=== PATIENT | male | born 1970 | race Caucasian/White ===

== ENCOUNTER 2019-03-23 03:19 | Emergency (ER) | payer OTHER, BC ==
--- NOTE | 2019-03-23 03:32 | EDM.PDOC ---
ED HPI GENERAL MEDICAL PROBLEM - General Chief Complaint: Eye Problems Stated Complaint: BOTH EYES IRRITATED AND SWOLLEN Time Seen by Provider: 03/23/19 03:32 Source of Information: Reports: Patient - History of Present Illness INITIAL COMMENTS - FREE TEXT/NARRATIVE: HISTORY AND PHYSICAL: History of present illness: [ Patient presents with eye irritation after leaving his contact lenses in for an extended period, he did remove the lenses and did discard them and has been wearing spectacles since he has injected sclera and tearing fine crusty exudate in the angle of his eyes bilaterally no fever nausea vomiting chills sweats no blurred vision double vision light sensitivity ] Review of systems: As per history of present illness and below otherwise all systems reviewed and negative. Past medical history: As per history of present illness and as reviewed below otherwise noncontributory. Surgical history: As per history of present illness and as reviewed below otherwise noncontributory. Social history: No reported history of drug or alcohol abuse. Family history: As per history of present illness and as reviewed below otherwise noncontributory. Physical exam: HEENT: Atraumatic, normocephalic, pupils reactive, negative for conjunctival pallor or scleral icterus, mucous membranes moist, throat clear, neck supple, nontender, trachea midline. Lungs: Clear to auscultation, breath sounds equal bilaterally, chest nontender. Heart: S1S2, regular, negative for clicks, rubs, or JVD. Abdomen: Soft, nondistended, nontender. Negative for masses or hepatosplenomegaly. Negative for costovertebral tenderness. Pelvis: Stable nontender. Genitourinary: Deferred. Rectal: Deferred. Extremities: Atraumatic, negative for cords or calf pain. Neurovascular unremarkable. Neuro: Awake, alert, oriented. Cranial nerves II through XII unremarkable. Cerebellum unremarkable. Motor and sensory unremarkable throughout. Exam nonfocal. Diagnostics: [Clinical ] Therapeutics: [Erythromycin ] Continue spectacle use Impression: [Acute conjunctivitis ] Definitive disposition and diagnosis as appropriate pending reevaluation and review of above. Bilateral Eye Pain Score (Numeric/FACES): 6 - Related Data Allergies Allergy/AdvReac Type Severity Reaction Status Date / Time No Known Allergies Allergy Verified 03/23/19 03:33 Home Meds: Home Meds . [Unable to Verify Home Med List] 09/29/19 [History] ED ROS GENERAL - Review of Systems Review Of Systems: See Below ED EXAM GENERAL W FULL EYE - Physical Exam Exam: See Below Course - Vital Signs Last Recorded V/S: Last Vital Signs Temp 97.3 F 03/23/19 03:20 Pulse 85 03/23/19 03:20 Resp 18 03/23/19 03:20 BP 165/95 H 03/23/19 03:20 Pulse Ox 94 L 03/23/19 03:20 Departure - Departure Time of Disposition: 03:36 Disposition: Home, Self-Care 01 Condition: Good Clinical Impression: Conjunctivitis - Discharge Information Referrals: PCP,None [Primary Care Provider] - Forms: ED Department Discharge Additional Instructions: Occasion as prescribed Return if symptoms persist or worsen Continue spectacle use for 5 days Follow-up with primary care in 2 weeks sooner as needed [facility] [address] [place] [id number] The following information is given to patients seen in the emergency department who are being discharged to home. This information is to outline your options for follow-up care. We provide all patients seen in our emergency department with a follow-up referral. The need for follow-up, as well as the timing and circumstances, are variable depending upon the specifics of your emergency department visit. If you don't have a primary care physician on staff, we will provide you with a referral. We always advise you to contact your personal physician following an emergency department visit to inform them of the circumstance of the visit and for follow-up with them and/or the need for any referrals to a consulting specialist. The emergency department will also refer you to a specialist when appropriate. This referral assures that you have the opportunity for follow-up care with a specialist. All of these measure are taken in an effort to provide you with optimal care, which includes your follow-up. Under all circumstances we always encourage you to contact your private physician who remains a resource for coordinating your care. When calling for follow-up care, please make the office aware that this follow-up is from your recent emergency room visit. If for any reason you are refused follow-up, please contact the [facility] emergency department at and asked to speak to the emergency department charge nurse.
[2019-03-23] MEDS ORDERED: Erythromycin Base 0.5% Ophth Oint 1 GM Tube EYEBOTH ONE (03:46)
== END 2019-03-23 03:56 | disposition home or self-care (01) ==
LOC: MW.ED 03:19
DX: H10.33 Unspecified acute conjunctivitis, bilateral (principal)
CPT/HCPCS: 99282; A9270

== ENCOUNTER 2019-03-23 08:36 | Emergency (ER) | payer OTHER, BC ==
[2019-03-23] MEDS ORDERED: Tetracaine HCl/PF 0.5% 4 ML Bottle EYEBOTH ONE (08:39)
[2019-03-23] MEDS ORDERED: Erythromycin Base 0.5% Ophth Oint 1 GM Tube EYEBOTH ONE (08:48)
[2019-03-23] MEDS ORDERED: Ketorolac 60 MG/2 ML SDV IM ONE (08:48)
--- NOTE | 2019-03-23 08:57 | EDM.PDOC ---
ED HPI GENERAL MEDICAL PROBLEM - General Chief Complaint: Eye Problems Stated Complaint: LEFT WATERY EYE Time Seen by Provider: 03/23/19 08:53 - History of Present Illness INITIAL COMMENTS - FREE TEXT/NARRATIVE: HISTORY AND PHYSICAL: History of present illness: Patient's 48-year-old male who was seen yesterday for irritation in his eyes bilaterally left greater than right after having slept with his contacts. He does not eat do this routinely and is unaware if he actually has extended-wear contracts are not. There is no other complaints other trauma or concern Review of systems: As per history of present illness and below otherwise all systems reviewed and negative. Past medical history: As per history of present illness and as reviewed below otherwise noncontributory. Surgical history: As per history of present illness and as reviewed below otherwise noncontributory. Social history: No reported history of drug or alcohol abuse. Family history: As per history of present illness and as reviewed below otherwise noncontributory. Physical exam: HEENT: Atraumatic, normocephalic, pupils reactive, bilaterally injected conjunctiva left greater than right anterior chambers clear lid eversion for foreign body was negative corneal staining was negative please see nursing notes for visual acuity, mucous membranes moist, throat clear, neck supple, nontender, trachea midline. Lungs: Clear to auscultation, breath sounds equal bilaterally, chest nontender. Heart: S1S2, regular, negative for clicks, rubs, or JVD. Abdomen: Soft, nondistended, nontender. Negative for masses or hepatosplenomegaly. Negative for costovertebral tenderness. Pelvis: Stable nontender. Genitourinary: Deferred. Rectal: Deferred. Extremities: Atraumatic, negative for cords or calf pain. Neurovascular unremarkable. Neuro: Awake, alert, oriented. Cranial nerves II through XII unremarkable. Cerebellum unremarkable. Motor and sensory unremarkable throughout. Exam nonfocal. Diagnostics: Corneal staining visual acuity Therapeutics: Tetracaine, drops irrigation erythromycin ophthalmic ointment Toradol 60 mg IM Impression: #1 conjunctivitis #2 rule out iritis Definitive disposition and diagnosis as appropriate pending reevaluation and review of above. eye Pain Score (Numeric/FACES): 8 - Related Data Allergies Allergy/AdvReac Type Severity Reaction Status Date / Time No Known Allergies Allergy Verified 03/23/19 08:42 Home Meds: Home Meds . [Unable to Verify Home Med List] 03/23/19 [History] Past Medical History Neurological History: Reports: Brain Injury, Head Trauma - Infectious Disease History Infectious Disease History: Reports: None Social & Family History - Family History Family Medical History: Noncontributory - Tobacco Use Smoking Status *Q: Never Smoker - Caffeine Use Caffeine Use: Reports: Coffee - Recreational Drug Use Recreational Drug Use: No ED ROS GENERAL - Review of Systems Review Of Systems: ROS reveals no pertinent complaints other than HPI. ED EXAM GENERAL W FULL EYE - Physical Exam Exam: See Below (See dictation) Course - Vital Signs Last Recorded V/S: Last Vital Signs Temp 35.8 C 03/23/19 08:42 Pulse 71 03/23/19 08:42 Resp 18 03/23/19 08:42 BP 176/91 H 03/23/19 08:42 Pulse Ox 95 03/23/19 08:42 - Orders/Labs/Meds Meds: Medications Discontinued Medications Generic Name Dose Route Start Last Admin Trade Name Elton PRN Reason Stop Dose Admin Erythromycin 1 gm 03/23/19 08:48 03/23/19 08:51 Erythromycin 0.5% Ophth Oint EYEBOTH 03/23/19 08:49 1 gm ONETIME ONE Administration Ketorolac Tromethamine 60 mg 03/23/19 08:48 03/23/19 08:52 Toradol IM 03/23/19 08:49 60 mg ONETIME ONE Administration Tetracaine HCl 4 ml 03/23/19 08:39 03/23/19 08:46 Tetracaine 0.5% Steri-Unit Shanta EYEBOTH 03/23/19 08:40 4 ml ASDIRECTED ONE Administration Departure - Departure Time of Disposition: 08:56 Disposition: Home, Self-Care 01 Condition: Good Clinical Impression: Conjunctivitis - Discharge Information Referrals: PCP,None [Primary Care Provider] - Additional Instructions: The following information is given to patients seen in the emergency department who are being discharged to home. This information is to outline your options for follow-up care. We provide all patients seen in our emergency department with a follow-up referral. The need for follow-up, as well as the timing and circumstances, are variable depending upon the specifics of your emergency department visit. If you don't have a primary care physician on staff, we will provide you with a referral. We always advise you to contact your personal physician following an emergency department visit to inform them of the circumstance of the visit and for follow-up with them and/or the need for any referrals to a consulting specialist. The emergency department will also refer you to a specialist when appropriate. This referral assures that you have the opportunity for followup care with a specialist. All of these measure are taken in an effort to provide you with optimal care, which includes your followup. Under all circumstances we always encourage you to contact your private physician who remains a resource for coordinating your care. When calling for followup care, please make the office aware that this follow-up is from your recent emergency room visit. If for any reason you are refused follow-up, please contact the [facility] emergency department at and asked to speak to the emergency department charge nurse. [facility] [address] [place] [address] Tobramycin as prescribed Ultram as directed follow-up ophthalmology above call schedule routine appointment avoid contact as discussed until resolution and reevaluation
== END 2019-03-23 09:41 | disposition home or self-care (01) ==
LOC: MW.ED 08:36
DX: H10.9 Unspecified conjunctivitis (principal)
CPT/HCPCS: 96372; 99282; A9270; J1885